=== PATIENT | female | born 1940 | race Caucasian/White ===

== ENCOUNTER 2016-08-17 11:01 | Inpatient (IN) ==
[2016-08-17] MEDS ORDERED: TYLENOL PO PRN (14:36)
--- NOTE | 2016-08-17 15:08 | Diag Imaging Result Doc PS360 ---
EXAM: ABDOMEN FLAT/UPRIGHT HISTORY: abdominal pain TECHNIQUE: Three views COMPARISON: None. FINDINGS: No free air beneath the diaphragm. The stomach is distended with air. No bowel obstruction. No organomegaly. No abnormal abdominal or pelvic calcifications. IMPRESSION: No acute abnormality Electronically signed by Tylor Granado 08/17/2016 3:05 PM
--- NOTE | 2016-08-17 15:30 | EKG Report ---
Test Performed on : 08/17/2016 2:51:34 PM Test Reason : chest pain Blood Pressure : / mmHG Vent. Rate : 058 BPM Atrial Rate : 058 BPM P-R Int : 158 ms QRS Dur : 094 ms QT Int : 400 ms P-R-T Axes : 043 026 006 degrees QTc Int : 392 ms Sinus bradycardia. Otherwise normal ECG When compared with ECG of 28-NOV-2007 09:33, Questionable change in QRS axis Confirmed by Linus WHEATLEY, [place] ([id number]) on 08/19/2016 2:55:11 PM
[2016-08-17 15:55] LABS: MANUAL DIFF NEEDED? NO
[2016-08-17 16:00] LABS: BASO% 0.2 % (0.0-0.8); EOS# 0.14 X1000 (0.0-0.7); EOS% 1.3 % (0.0-10.0); HEMATOCRIT 32.6 % (37.0-47.0); HEMOGLOBIN 10.8 g/dL (12.0-16.0); IMM GRAN# 0.02 X1000 (0.0-0.04); IMM GRAN% 0.2 % (0.0-0.5); LYMPH# 2.73 X1000 (1.2-3.4); MCH 28.6 PG (27-31); MCHC 33.1 g/dL (33-37); MCV 86.2 FL (81-99); MONO# 1.35 X1000 (0.11-0.59); MONO% 12.3 % (1.7-9.3); PLT 318 X1000 (130-400); RBC 3.78 XMIL (4.2-5.4)
[2016-08-17 16:13] LABS: INR 0.98; PROTIME 10.3 Seconds (9.2-11.7); PTT 33.3 Seconds (22.0-36.0)
[2016-08-17 16:30] LABS: ALBUMIN 3.2 g/dL (3.5-5.0); MAGNESIUM 2.4 mg/dL (1.5-2.7); POTASSIUM 3.2 mmol/L (3.5-5.1); TOTAL BILIRUBIN 0.72 mg/dL (0.20-1.00); TOTAL PROTEIN 6.8 g/dL (6.3-8.3)
[2016-08-17] MEDS: NS 1,000 ML IV SCH ×2 (17:05→20:16)
[2016-08-17 18:32] LABS: URINE CULTURE NEEDED? NO; URINE MICRO REVIEW NEEDED? NO; URINE SOURCE CLEAN CATCH
[2016-08-17 18:37] LABS: BILIRUBIN URINE NEGATIVE (NEGATIVE); BLOOD URINE NEGATIVE (NEGATIVE); COLOR STRAW; GLUCOSE URINE NEGATIVE (NEGATIVE); LEUKOCYTES URINE NEGATIVE (NEGATIVE); NITRITE URINE NEGATIVE (NEGATIVE); PROTEIN URINE NEGATIVE (NEGATIVE); SP GRAVITY URINE 1.002; TURBIDITY URINE CLEAR (CLEAR); UR EPITHELIAL CELLS <10 /HPF (<10); URINE BACTERIA NEGATIVE /HPF; URINE RBC <10 /HPF (<10); URINE WBC <10 /HPF (<10); UROBILINOGEN URINE NORMAL (NORMAL)
[2016-08-17] MEDS: PRILOSEC PO SCH (20:15)
--- NOTE | 2016-08-18 02:11 | HISTORY AND PHYSICAL ---
HISTORY OF PRESENT ILLNESS: Ms. Kelly has had epigastric pain, now going on for over 4 weeks. She has not been eating or drinking much. She is also having some trouble with swallowing, and feels pain at the substernal xiphoid process. Also, some burning up into her chest. We did an ultrasound, and it shows numerous gallstones, with a little bit of swelling of the gallbladder. Did not see any definite dilatation of the biliary duct. Put her on a proton pump inhibitor, but she is not any better, and still has not eaten or drank much in the last 2 weeks. Denies any fever or chills, just persistent pain. Does not seem to be worse after she eats, but she does feel like sometimes food is getting stuck in her esophagus. PAST MEDICAL HISTORY: Pretty unremarkable. ALLERGIES: , simvastatin, sulfa, and meloxicam. FAMILY HISTORY: Noncontributory. SOCIAL HISTORY: Negative for alcohol or tobacco. Recently lost her about a year ago, maybe 2 years now. REVIEW OF SYSTEMS: She has lost some weight because she is not eating or drinking. She feels like she is probably a little dehydrated.HEENT: Unremarkable. Respiratory: No increased work of breathing or dyspnea. Cardiovascular: No chest pain or tachy palpitation. Gastrointestinal/Genitourinary: As above. No gross hematuria or dysuria. Musculoskeletal/Neurologic: No complaints. PHYSICAL EXAMINATION: VITAL SIGNS: Temperature 98.6 degrees, pulse 58, respirations 98, blood pressure 115/50. CVP less than 6 cm. LUNGS: Clear in all lung oconnell. CARDIOVASCULAR: Regular rhythm and rate, without murmur or S3. ABDOMEN: Soft. SKIN: Warm, dry. GENERAL: Weight 197 pounds. Height 4 feet 10 inches. LABORATORY STUDIES: White count 10,940, hematocrit 32, platelet count 318,000. Sodium 130, potassium 3.2, chloride 90, bicarb 25, BUN 48, creatinine 3.1. Calcium 9.0. Liver functions unremarkable. Albumin 3.2. Pro time 10.3, PTT is 33. Abdominal x-ray: No acute abnormality. ASSESSMENT AND PLAN: 1. Epigastric pain and cholelithiasis. Questionable whether she has a history of acute cholecystitis. I do not see any elevation in transaminases or the bilirubin. Also, symptoms of esophagitis and esophageal dysphagia. We will ask Dr. Bolivar to evaluate. Suspect she will need an esophagogastroduodenoscopy, and possibly need a cholecystectomy. We will give her some IV fluids. 2. Acute kidney injury. Aware. Creatinine up to 3.2. I think this is all prerenal. Her baseline, she has no known kidney disease. 3. Nutrition has been poor the last several days, so will put her on full liquids for now until we evaluate this. cc: Bhanu Thomas MD
[2016-08-18] MEDS: NS 1,000 ML IV SCH ×2 (04:09→14:26)
[2016-08-18] MEDS: PRILOSEC PO SCH (13:40)
[2016-08-18] MEDS ORDERED: GLUCAGON ONE (15:06)
[2016-08-18] MEDS ORDERED: DIPRIVAN 1% ONE (17:37)
[2016-08-18] MEDS ORDERED: FENTANYL ONE (17:37)
--- NOTE | 2016-08-18 18:06 | PROGRESS NOTE ---
DATE: 08/18/2016 SUBJECTIVE: Ms. Kelly is hungry, requesting some food. OBJECTIVE: Vital Signs: Afebrile. Temperature 98.5 degrees, pulse 58, respirations 18, blood pressure 120/52. CVP less than 6 cm. Lungs: Clear in all lung oconnell. Cardiovascular: Regular rhythm and rate, without murmur or S3. Abdomen: Soft. Skin: Warm and dry. O2 saturation 98%. LABORATORY STUDIES: Reviewed lab from yesterday. White count 10,940, hematocrit 32, platelet count 318,000. Sodium 130, potassium 3.2, chloride 90, bicarb 25, BUN 48, creatinine 3.1. Calcium is 9.0. Liver functions unremarkable. Magnesium 2.4. Pro time 10.3, PTT was 33. Urinalysis unremarkable. Abdominal x-ray: No acute abnormality. ASSESSMENT AND PLAN: 1. Epigastric pain. Ultrasound shows numerous gallstones, with puffy gallbladder. I believe Dr. Bolivar is planning on doing an EGD tomorrow. She is requesting food. I will give her soft diet tonight, NPO after midnight. I also will see whether we need to get Surgery involved about her gallbladder, so we will see what the EGD shows. 2. I will supplement her potassium, give her some p.o. potassium tonight. cc: Bhanu Thomas MD
--- NOTE | 2016-08-18 18:56 | OPERATIVE NOTE ---
PROCEDURE DATE: 08/18/2016 PROCEDURE: EGD. PREOPERATIVE DIAGNOSIS: 1. Abdominal pain. 2. Dysphagia. POSTOP DIAGNOSIS: Normal EGD. HISTORY: This 75-year-old white female in the hospital with postprandial abdominal pain, retrosternal discomfort and globus feeling. She also complains some occasional dysphagia. EGD was done to identify the etiology treat accordingly. DESCRIPTION OF PROCEDURE: Informed consent obtained from the patient. Procedure risks, benefits, alternatives were explained in layman's terms. She understood. All the pertinent questions answered. Patient was brought to the endoscopy unit and was premedicated as per Anesthesia. After adequate sedation while she was lying left lateral position, the gastroscope was introduced into the posterior pharynx and advanced under direct vision into the esophagus. Esophagus in its entire length appeared to be normal. No esophagitis, webs, rings, varices were seen. I did not see any stricture or stenosis. Scope was easily passed through the esophagus into the stomach. The stomach was examined both straight and retroflexed view which revealed patchy hyperemia but no ulcer, AVM or masses were seen. No pathology seen. Scope passed through the normal pylorus into the duodenal bulb and then 2nd part duodenum both appeared to be normal. Scope was withdrawn. Patient tolerated procedure well. No complications noted. Patient was then transferred to the recovery area in a stable condition. IMPRESSION: Abdominal pain and dysphagia with normal EGD. RECOMMENDATION: Advised her to moisten her mouth and esophagus by taking sip of water in between her bites and swallow with chin down method while sitting upright. Advised to resume her diet and continue current medications. Follow up with me in the office after discharge. cc: MD Bhanu Justice MD
[2016-08-19] MEDS: NS 1,000 ML IV SCH ×2 (04:00→16:17)
[2016-08-19] MEDS: PRILOSEC PO SCH (06:27)
[2016-08-19] MEDS ORDERED: DULCOLAX PR ONE (12:00)
--- NOTE | 2016-08-19 13:33 | PROGRESS NOTE ---
DATE: 08/19/2016 She is feeling better. Was tolerating a soft diet.Vital signs: Temperature 97.9 degrees, pulse 58, respirations 19, blood pressure 123/48. CVP less than 6 cm. Lungs: Clear in all lung oconnell. Cardiovascular: Regular rhythm and rate without murmurs or S3. Mild epigastric discomfort or tenderness. Urine output over 3.5 L. LAB REVIEW: From the . CBC and chemistry unremarkable. ASSESSMENT AND PLAN: Epigastric pain, abdominal pain and dysphagia. She had a normal EGD. She has an ultrasound that shows numerous gallstones and some swelling of the gallbladder. We will ask Dr. aDvid Law to evaluate her for elective cholecystectomy. Continue her present orders. She is on normal saline at 85 mL an hour. We did give her some Mag citrate to help her with cleaning out her bowels. cc: Bhanu Thomas MD
[2016-08-19] MEDS ORDERED: CITRATE OF MAGNESIA PO ONE (21:00)
[2016-08-19] MEDS: FLEET ENEMA PR SCH (23:03)
[2016-08-20] MEDS: PRILOSEC PO SCH (06:16)
[2016-08-20 06:57] LABS: MANUAL DIFF NEEDED? NO
[2016-08-20 07:00] LABS: BASO% 0.4 % (0.0-0.8); EOS% 2.2 % (0.0-10.0); HEMATOCRIT 33.9 % (37.0-47.0); HEMOGLOBIN 11.3 g/dL (12.0-16.0); IMM GRAN# 0.03 X1000 (0.0-0.04); IMM GRAN% 0.3 % (0.0-0.5); LYMPH# 2.58 X1000 (1.2-3.4); LYMPH% 28.7 % (20.5-51.1); MCH 29.5 PG (27-31); MCHC 33.3 g/dL (33-37); MCV 88.5 FL (81-99); MONO# 0.82 X1000 (0.11-0.59); MONO% 9.1 % (1.7-9.3); NEUT% 59.3 % (42.2-75.2); PLT 365 X1000 (130-400); RBC 3.83 XMIL (4.2-5.4)
[2016-08-20 07:26] LABS: ALBUMIN 3.5 g/dL (3.5-5.0); CALCIUM 9.1 mg/dL (8.8-10.2); POTASSIUM 3.5 mmol/L (3.5-5.1); TOTAL BILIRUBIN 0.23 mg/dL (0.20-1.00); TOTAL PROTEIN 6.8 g/dL (6.3-8.3)
--- NOTE | 2016-08-20 12:50 | PROGRESS NOTE ---
DATE: 08/20/2016 SUBJECTIVE: She is not hurting. waiting on surgery. She did not eat anything today. OBJECTIVE: Vital signs: Temperature 98.3 degrees, pulse 59, respirations 18, blood pressure 135/56. HEENT: The pupils are equal and round. Lungs: Are clear in all lung oconnell. Cardiovascular: Regular rhythm and rate without murmur or S3. Abdomen: Soft. Skin: Is warm and dry. LAB: From this morning white count 8980, hematocrit 33, platelet count 365,000. Sodium 141, potassium 3.5, chloride 103. BUN 30, creatinine 1.6. Creatinine has come down nicely from 3.1. ASSESSMENT AND PLAN: 1. Epigastric pain, abdominal pain, and dysphagia. Normal Esophagogastroduodenoscopy. Ultrasound with numerous gallstones, swelling of gallbladder. Pain consistent with biliary colic. Dr. Law to perform a cholecystectomy today. 2. Acute kidney injury. Looks predominantly prerenal and is improved. Hopefully, she can go home tomorrow and see how we do. Check electrolytes, chem-22, magnesium, and CBC again in the morning. cc: Bhanu Thomas MD
[2016-08-20] MEDS ORDERED: MARCAINE 0.25% PF/EPI 1:200,000 ONE (15:54)
[2016-08-20] MEDS ORDERED: SODIUM CHLORIDE 0.9% ONE (15:54)
[2016-08-20] MEDS ORDERED: LR 1,000 ML ONE (15:54)
[2016-08-20] MEDS ORDERED: QUELICIN (DOSE) ONE (16:06)
[2016-08-20] MEDS ORDERED: XYLOCAINE-MPF 2% ONE (16:06)
[2016-08-20] MEDS ORDERED: DIPRIVAN 1% ONE (16:07)
[2016-08-20] MEDS ORDERED: ZEMURON ONE (16:14)
[2016-08-20] MEDS ORDERED: KEFZOL 1 GM/D5W 1 GM/50 ML IVPB ONE (16:18)
[2016-08-20] MEDS ORDERED: ZOFRAN ONE (17:45)
[2016-08-20] MEDS ORDERED: ROBINUL ONE ×2 (17:57→18:34)
[2016-08-20] MEDS ORDERED: NEOSTIGMINE ONE ×2 (17:59→18:35)
--- NOTE | 2016-08-20 18:13 | Diag Imaging Result Doc PS360 ---
EXAM: OPERATIVE CHOLANGIOGRAM HISTORY: CHOLELITHIASIS AND CHOLECYSTITIS TECHNIQUE: COMPARISON: None. FINDINGS: Intraoperative cholangiogram, single view taken during a procedure performed by Dr. Law. Contrast fills the common bile duct and has emptied into the duodenum. No stone or stricture. IMPRESSION: Normal intraoperative cholangiogram. Electronically signed by Tylor Granado 08/20/2016 6:10 PM
[2016-08-20] MEDS ORDERED: ZOFRAN IV PRN (19:14)
[2016-08-20] MEDS ORDERED: TYLENOL PO PRN (19:14)
[2016-08-20] MEDS ORDERED: ZOFRAN PO PRN (19:15)
[2016-08-20] MEDS ORDERED: 1/2 NS + KCL 20 MEQ 1,000 ML ONE (19:18)
--- NOTE | 2016-08-20 19:20 | OPERATIVE NOTE ---
PROCEDURE DATE: 08/20/2016 PREOPERATIVE DIAGNOSIS: Cholecystitis and cholelithiasis. POSTOPERATIVE DIAGNOSIS: Acute cholecystitis. PROCEDURE: Laparoscopic cholecystectomy with operative cholangiogram. DESCRIPTION OF PROCEDURE: The patient was brought to the operating room after satisfactory induction of IV and endotracheal anesthesia, athrombic TEDs were placed. Her abdomen was broadly prepped and draped in the appropriate manner for laparoscopy. Initially, the infraumbilical area was infiltrated with 0.25% Marcaine with epinephrine. Dissection was taken sharply down through skin and subcutaneous tissue. Fascia was tacked with 0 Surgilon and incised. Under direct visualization, a Kirtsen trocar was placed. The abdomen was insufflated to 3.5 L of carbon dioxide. On introduction of the camera, there was seen to be dense omental adhesions to the gallbladder. In the right epigastrium, a 10 mm trocar was placed after local anesthesia and two 5 mm trocars were placed laterally. The patient was repositioned. The omental adhesions were peeled down. A suction professor of marketing was used to aspirate the gallbladder of purulent material. This was sent for routine anaerobic and aerobic cultures. The gallbladder was subsequently grasped and retracted superiorly. With some difficulty, the hilar structures were dissected. The cystic duct cholangiogram revealed good flow of contrast into the duodenum with no obstruction. The catheter was subsequently removed. The duct was doubly clipped and divided. The cystic artery was likewise skeletonized, doubly clipped and divided. The gallbladder was dissected from the liver bed with the use of the monopolar scissors. It was subsequently freed up and placed in an EndoCatch bag along with three large stones that had fallen out. They were about 2.5 cm a piece and all of these were removed. The subhepatic and subphrenic spaces were aspirated free of the small amount of bile and blood. In view of the degree of infection, a Linus-Wayne drain was threaded and brought out through the right lateral trocar incision and anchored with 0 Surgilon and hooked to suction. The abdomen was subsequently deflated and all of the trocars were removed. The subumbilical incision underwent fascial closures of 0 Surgilon. All skin incisions were irrigated with Betadine and closed with stainless steel clips. Sterile dressings were applied. The patient was awakened in the operating room and transferred to recovery. ESTIMATED BLOOD LOSS: About 100 mL. cc: MD Bhanu Wray MD
[2016-08-20] MEDS: MORPHINE ONE ×2 (19:30→19:36)
[2016-08-20] MEDS ORDERED: MORPHINE ONE ×2 (19:43→19:55)
[2016-08-20] MEDS: FLEET ENEMA PR SCH (22:30)
[2016-08-20] MEDS: ZOSYN 3.375 GM/NS 3.375 GM/50 ML IVPB IV SCH (22:30)
[2016-08-21] MEDS: 1/2 NS + KCL 20 MEQ 1,000 ML IV SCH ×3 (04:12→19:49)
[2016-08-21] MEDS: ZOSYN 3.375 GM/NS 3.375 GM/50 ML IVPB IV SCH ×2 (04:33→08:17)
[2016-08-21] MEDS: PRILOSEC PO SCH (06:03)
[2016-08-21 06:57] LABS: MANUAL DIFF NEEDED? NO
[2016-08-21 07:07] LABS: BASO% 0.1 % (0.0-0.8); EOS# 0.01 X1000 (0.0-0.7); EOS% 0.1 % (0.0-10.0); HEMATOCRIT 35.1 % (37.0-47.0); HEMOGLOBIN 11.2 g/dL (12.0-16.0); IMM GRAN# 0.05 X1000 (0.0-0.04); IMM GRAN% 0.4 % (0.0-0.5); LYMPH# 2.06 X1000 (1.2-3.4); LYMPH% 15.2 % (20.5-51.1); MCH 29.1 PG (27-31); MCHC 31.9 g/dL (33-37); MCV 91.2 FL (81-99); MONO# 1.33 X1000 (0.11-0.59); MONO% 9.8 % (1.7-9.3); MPV 10.7 FL (7.4-10.4); NEUT% 74.4 % (42.2-75.2); PLT 367 X1000 (130-400); RBC 3.85 XMIL (4.2-5.4)
[2016-08-21 07:42] LABS: ALBUMIN 3.4 g/dL (3.5-5.0); MAGNESIUM 2.4 mg/dL (1.5-2.7); POTASSIUM 4.4 mmol/L (3.5-5.1); TOTAL BILIRUBIN 0.27 mg/dL (0.20-1.00); TOTAL PROTEIN 6.6 g/dL (6.3-8.3)
--- NOTE | 2016-08-21 08:11 | Diag Imaging Result Doc PS360 ---
EXAM: CHEST-PORTABLE HISTORY: post op orders TECHNIQUE: Portable upright AP COMPARISON: None. FINDINGS: Poor inspiratory effort. Heart is not enlarged. The vessels are not distended. I believe there is basilar atelectasis. Right subclavian line is present with the tip overlying the right atrium. No pneumothorax. IMPRESSION: Poor inspiratory effort with basilar atelectasis. Electronically signed by Tylor Granado 08/21/2016 8:09 AM
--- NOTE | 2016-08-21 08:39 | EKG Report ---
Test Performed on : 08/21/2016 07:30:52 AM Test Reason : post surgery orders Blood Pressure : / mmHG Vent. Rate : 067 BPM Atrial Rate : 067 BPM P-R Int : 146 ms QRS Dur : 082 ms QT Int : 386 ms P-R-T Axes : 101 014 -02 degrees QTc Int : 407 ms Normal sinus rhythm. Cannot rule out Anterior infarct , age undetermined Abnormal ECG When compared with ECG of 17-AUG-2016 14:51, Nonspecific T wave abnormality now evident in Anterolateral leads Confirmed by Linus WHEATLEY, [place] ([id number]) on 08/25/2016 2:13:55 PM
--- NOTE | 2016-08-21 15:21 | PROGRESS NOTE ---
DATE: 08/21/2016 SUBJECTIVE: She says she is feeling better. We do have a drain in. The gallbladder taken out. OBJECTIVE: Vital Signs: Afebrile. Temperature 98 degrees, pulse 70, respirations 18, blood pressure 128/53. HEENT: Pupils are equal, round, react to light and accommodation. Oral and nasal mucosa unremarkable. Conjunctivae pink. Sclerae clear. Tympanic membranes intact. Neck: Supple without adenopathy or thyromegaly. Urine output: For 3.5 liters. LABORATORY DATA: White count 13,540, hematocrit 35, platelet count 367,000. Sodium 142, potassium 4, chloride 103. BUN is 24, creatinine 1.3, so that is coming down nicely. ASSESSMENT AND PLAN: Biliary colic, laparoscopic cholecystectomy, acute cholecystitis . Recovering well. Drain still in place. Advance diet as we can. Reviewed orders. Continue on Zosyn for now. Getting fluids one-half normal saline at 100 mL an hour. Morphine as needed for pain. cc: Bhanu Thomas MD
[2016-08-21] MEDS: LOVENOX SUBQ SCH (15:39)
[2016-08-21] MEDS: ZOSYN 2.25 GM/NS 2.25 GM/50 ML IVPB IV SCH ×2 (15:39→19:49)
[2016-08-21] MEDS: NORCO-10 PO PRN (19:50)
[2016-08-22] MEDS: FLEET ENEMA PR SCH ×2 (00:04→20:28)
[2016-08-22] MEDS: ZOSYN 2.25 GM/NS 2.25 GM/50 ML IVPB IV SCH ×5 (00:04→20:25)
[2016-08-22] MEDS: MORPHINE IV PRN ×4 (00:30→20:25)
[2016-08-22] MEDS: 1/2 NS + KCL 20 MEQ 1,000 ML IV SCH ×3 (00:43→20:25)
[2016-08-22 06:42] LABS: MANUAL DIFF NEEDED? NO
[2016-08-22] MEDS: PRILOSEC PO SCH (06:44)
[2016-08-22 06:59] LABS: BASO% 0.2 % (0.0-0.8); EOS# 0.31 X1000 (0.0-0.7); EOS% 3.2 % (0.0-10.0); HEMATOCRIT 28.4 % (37.0-47.0); HEMOGLOBIN 8.8 g/dL (12.0-16.0); IMM GRAN# 0.03 X1000 (0.0-0.04); IMM GRAN% 0.3 % (0.0-0.5); LYMPH# 2.34 X1000 (1.2-3.4); LYMPH% 24.1 % (20.5-51.1); MCH 28.8 PG (27-31); MCV 92.8 FL (81-99); MONO# 1.27 X1000 (0.11-0.59); MONO% 13.1 % (1.7-9.3); MPV 10.3 FL (7.4-10.4); NEUT% 59.1 % (42.2-75.2); PLT 282 X1000 (130-400); RBC 3.06 XMIL (4.2-5.4)
[2016-08-22 07:03] LABS: ALBUMIN 2.8 g/dL (3.5-5.0); CALCIUM 7.8 mg/dL (8.8-10.2); POTASSIUM 4.1 mmol/L (3.5-5.1); TOTAL BILIRUBIN 0.27 mg/dL (0.20-1.00); TOTAL PROTEIN 5.5 g/dL (6.3-8.3)
[2016-08-22] MEDS: HEMOCYTE PLUS CAPSULE PO SCH (10:50)
--- NOTE | 2016-08-22 12:06 | PROGRESS NOTE ---
DATE: 08/22/2016 She is feeling better. She did have to have a little more for pain today. She wants to get up and they are advancing her diet.Vital signs: Temperature 97.7 degrees, pulse 72, respirations 16, blood pressure 142/70. HEENT: Pupils are equal, round. Lungs: Are clear in all lung oconnell. Cardiovascular: Regular rhythm and rate without murmur or S3. Abdomen: Soft. Skin: Is warm and dry. Urine output over 2 L. LABORATORIES: From today, white count 9690, hematocrit 28, platelet count 282,000. Sodium 149, potassium 4.1, chloride 104, BUN 16, creatinine 1.2. ASSESSMENT AND PLAN: 1. Status post laparoscopic cholecystectomy doing well. Advance diet. Increase her activity. 2. Acute kidney injury which is improving. Creatinine improving every day. Continue present fluids. Now creatinine is down to 1.2. 3. Hematocrit 28, hemoglobin 8.8, and I am sure this represents acute blood loss. We will follow. Make sure she is on iron. Review of her orders, I do not see any change. cc: Bhanu Thomas MD
[2016-08-22] MEDS: LOVENOX SUBQ SCH (18:41)
[2016-08-23] MEDS: ZOSYN 2.25 GM/NS 2.25 GM/50 ML IVPB IV SCH ×2 (02:48→10:39)
[2016-08-23] MEDS: MORPHINE IV PRN (02:57)
[2016-08-23] MEDS: 1/2 NS + KCL 20 MEQ 1,000 ML IV SCH ×3 (06:26→19:03)
[2016-08-23] MEDS: PRILOSEC PO SCH (06:42)
[2016-08-23] MEDS: HEMOCYTE PLUS CAPSULE PO SCH (10:39)
[2016-08-23] MEDS: LOVENOX SUBQ SCH ×3 (14:30→18:58)
--- NOTE | 2016-08-23 16:52 | PROGRESS NOTE ---
DATE: 08/23/2016 SUBJECTIVE: Ms. Kelly is feeling better. She feels a little stronger, going to try and advance her diet. She is getting up some and moving around. OBJECTIVE: Vital signs: Temperature 98.0 degrees, pulse 65 respirations 19, blood pressure 120/69, CVP less than 6 cm. Lungs: Clear in all lung oconnell. Cardiovascular: Regular rhythm and rate without murmur, S3. Urine output 900 mL. LAB REVIEW: Reviewed from yesterday. Hemoglobin 8.8, hematocrit 28, chemistries unremarkable, creatinine down to 1.2, she had 3.1 when she came in. ASSESSMENT AND PLAN: 1. Status post laparoscopic cholecystectomy doing well, less pain, advancing diet. 2. Acute kidney injury improving. Continue fluids. 3. Hemoglobin and hematocrit will continue to follow. No sign of active bleeding. Hopefully advanced her diet we can maybe go home tomorrow, looking over orders I do not see any change at this point, I will stop her Zosyn. cc: Bhanu Thomas MD
[2016-08-24] MEDS: 1/2 NS + KCL 20 MEQ 1,000 ML IV SCH ×3 (02:37→23:27)
[2016-08-24] MEDS: FLEET ENEMA PR SCH ×2 (02:37→23:20)
[2016-08-24] MEDS: NORCO-10 PO PRN (02:38)
[2016-08-24] MEDS: PRILOSEC PO SCH (06:31)
[2016-08-24] MEDS: HEMOCYTE PLUS CAPSULE PO SCH (10:22)
[2016-08-24] MEDS ORDERED: SALINE LOCK IV FLUID XX ONE (11:24)
[2016-08-24] MEDS: ICAR-C PO SCH ×3 (14:53→23:27)
[2016-08-24] MEDS: LOVENOX SUBQ SCH (15:15)
--- NOTE | 2016-08-24 15:16 | PROGRESS NOTE ---
DATE: 08/24/2016 SUBJECTIVE: Ms. Kelly is feeling better. A little stronger. Her drain is still in place. Remains afebrile. OBJECTIVE: Vital signs: Temperature 98.6 degrees, pulse 71, respirations 14, blood pressure 165/52, CVP less than 6 cm. Lungs: Clear in all lung oconnell. Cardiovascular: Regular rhythm and rate without murmur or S3. Abdomen: Soft. Skin: Warm and dry. : Urine output of 900 mL. LABORATORIES: Reviewed from 08/22, serum creatinine down to 1.2 so renal function has improved. ASSESSMENT AND PLAN: 1. Status post laparoscopic cholecystectomy. Doing well. Drain still in place. Probably that tomorrow. 2. Acute kidney injury which is improving. GFR appears close to back to the baseline. 3. Watch hemoglobin and hematocrit. She has acute blood loss anemia. Hemoglobin is 8.8, creatinine was 28. 4. Reviewing orders, I do not see any change at this point. We will make sure we will put her on some iron. cc: Bhanu Thomas MD
[2016-08-25] MEDS: 1/2 NS + KCL 20 MEQ 1,000 ML IV SCH ×2 (01:18→08:58)
[2016-08-25] MEDS: PRILOSEC PO SCH (06:04)
[2016-08-25] MEDS: ICAR-C PO SCH (08:58)
[2016-08-25] MEDS: HEMOCYTE PLUS CAPSULE PO SCH (08:58)
[2016-08-25 10:07] LABS: MANUAL DIFF NEEDED? NO
[2016-08-25 10:13] LABS: BASO% 0.2 % (0.0-0.8); EOS# 0.17 X1000 (0.0-0.7); EOS% 1.7 % (0.0-10.0); HEMATOCRIT 30.5 % (37.0-47.0); HEMOGLOBIN 9.6 g/dL (12.0-16.0); IMM GRAN# 0.04 X1000 (0.0-0.04); IMM GRAN% 0.4 % (0.0-0.5); LYMPH# 1.86 X1000 (1.2-3.4); MCH 28.6 PG (27-31); MCHC 31.5 g/dL (33-37); MCV 90.8 FL (81-99); MONO# 0.81 X1000 (0.11-0.59); MONO% 8.3 % (1.7-9.3); MPV 10.7 FL (7.4-10.4); NEUT% 70.4 % (42.2-75.2); PLT 287 X1000 (130-400); RBC 3.36 XMIL (4.2-5.4)
[2016-08-25 10:46] LABS: AGAP 10; ALBUMIN 2.9 g/dL (3.5-5.0); ALKALINE PHOSPHATASE 65 U/L (32-104); BUN 9 mg/dL (8-22); CALCIUM 8.6 mg/dL (8.8-10.2); CHLORIDE 105 mmol/L (98-107); COSMO 282; GOT 16 U/L (10-30); GPT 12 U/L (10-36); SODIUM 141 mmol/L (136-145); TCO2 26 mmol/L (25-35); TOTAL BILIRUBIN 0.25 mg/dL (0.20-1.00)
[2016-08-25 11:50] VITALS: BP 157/63
--- NOTE | 2016-08-25 14:16 | DISCHARGE SUMMARY ---
ADMISSION DATE: 08/17/2016 DISCHARGE DATE: SUBJECTIVE: Ms. Kelly presented with epigastric pain which she had for over 4 weeks, postprandial discomfort, nausea, hurting in substernal and xiphoid process and found to have numerous stones, dilated gallbladder consistent with cholecystitis. She was admitted to the hospital. She had a laparoscopic cholecystectomy done by Dr. David Law. Postop, she had persistent nausea, a lot of bloating, able to finally pull her drain and advance her diet. She was ambulating, and it was felt she could go home on 08/25/2016. DISCHARGE MEDICATIONS: 1. Hydrocodone. 2. [place]ow[place] as needed. 3. Icar-C one b.i.d. 4. Multivitamin. 5. Prilosec 20 mg a day. PLAN: I will see her back in my office in a couple of weeks. Dr. Law will see her back in about a week. cc: Bhanu Thomas MD
== END 2016-08-25 14:51 | disposition home or self-care (01) ==
LOC: DIRADM 11:01 → 3N 14:28
PROVIDERS: ADMIT Emergency Medicine; ATTEND Emergency Medicine